=== PATIENT | female | born 1975 ===

== ENCOUNTER 2022-12-31 09:52 | Outpatient (CLI) | payer OTHER, SELFPAY ==
[2022-12-31 20:52] LABS: Kit Draw Collected
== END 2022-12-31 09:53 | disposition home or self-care (01) ==
LOC: ANHGOSHLAB 09:55
PROVIDERS: PCP Emergency Medicine; Visit Provider Emergency Medicine
DX: N92.4 Excessive bleeding in the premenopausal period (principal); E66.3 Overweight; R53.83 Other fatigue
CPT/HCPCS: 36415